=== PATIENT | male | born 1980 | race Caucasian/White ===

== ENCOUNTER 2024-03-27 09:31 | Observation (INO) ==
[2024-03-27] MEDS ORDERED: iohexoL-300 100 ML VIAL ONE ×2 (10:44→11:48)
[2024-03-27] MEDS: DEXAMETHASONE 10 MG/ML VIAL IVP STA (10:52)
[2024-03-27] MEDS: HYDROmorphone 1 MG/ML CARPUJECT IVP STA ×2 (10:52→13:21)
[2024-03-27] MEDS: KETOROLAC 30 MG/ML VIAL IVP STA (10:52)
[2024-03-27 11:03] LABS: BASOPHILS % (AUTO) 0.2 %; EOSINOPHILS % (AUTO) 1.5 %; LYMPHOCYTES % (AUTO) 4.8 %; MEAN CORPUSCULAR HEMOGLOBIN 30.5 pg (27.0-31.0); MEAN CORPUSCULAR HGB CONC 32.6 g/dL (32.0-36.0); MEAN CORPUSCULAR VOLUME 93.7 fL (80.0-94.0); MEAN PLATELET VOLUME 9.9 fL (7.4-11.4); MONOCYTES % (AUTO) 5.4 %; NEUTROPHILS % (AUTO) 87.4 %; PLT - PLATELET COUNT 266 10^3/uL (130-450); RED BLOOD COUNT 4.59 10^6/uL (4.70-6.10); RED CELL DISTRIBUTION WIDTH 12.9 % (12.0-15.0); WHITE BLOOD COUNT 25.6 x10^3/uL (4.8-10.8)
[2024-03-27 11:12] LABS: ABNORMAL LYMPHS % (MANUAL) 0 %
[2024-03-27 11:19] LABS: BAND NEUTROPHILS % (MANUAL) 20 %; DIFFERENTIAL COMMENT MANUAL DIFFERENTIAL; EOSINOPHILS # (MANUAL) 0.5 10^3/uL (0-0.7); LYMPHOCYTES # (MANUAL) 1.3 10^3/uL (1.5-3.5); LYMPHOCYTES % (MANUAL) 4 %; MONOCYTES # (MANUAL) 0.5 10^3/uL (0.0-1.0); NEUTROPHILS # (MANUAL) 23.3 10^3/uL (1.5-6.6); RBC MORPHOLOGY (MULTIPLE) 2+ ANISOCYTOSIS (NORMAL); REACTIVE LYMPHS % (MANUAL) 1 %
[2024-03-27] MEDS: CLINDAMYCIN 900 MG/50 ML 900 MG/50 ML BAG IV ONE (11:23)
[2024-03-27 11:31] LABS: ALBUMIN 4.3 g/dL (3.2-5.5); ALBUMIN/GLOBULIN RATIO 1.4 (1.0-2.2); BILIRUBIN,TOTAL 0.7 mg/dL (0.2-1.0); CALCIUM 9.8 mg/dL (8.5-10.3); CREATININE 0.9 mg/dL (0.6-1.3); POTASSIUM 3.7 mmol/L (3.5-4.5); TOTAL PROTEIN 7.4 g/dL (6.4-8.9)
[2024-03-27] MEDS: iohexoL-300 100 ML VIAL IVP ONE (12:28)
--- NOTE | 2024-03-27 12:48 | ED Physician Documentation ---
History of Present Illness Stated complaint Stated Complaint: JAW PX Chief complaint Chief Complaint: Heent Meds/Allgy Home Medications Ambulatory Orders Medication Instructions Recorded Confirmed amoxicillin 875 mg-potassium 1 tab PO BID #14 tabs 03/27/24 03/27/24 clavulanate 125 mg tablet gabapentin 100 mg capsule 100 mg PO TID 03/27/24 03/27/24 Allergies Allergies Allergy/AdvReac Type Severity Reaction Status Date / Time No Known Drug Allergies Allergy Verified 03/27/24 01:45 [facility] Medical History Medical History (Updated 03/27/24 @ 12:48 by Rosalind Scruggs MD) Anxiety Surgical History Surgical History (Updated 03/27/24 @ 01:56 by KENNEDY Jean) History of tooth extraction Social History Social History (Updated 03/27/24 @ 01:56 by KENNEDY Jean) Smoking Status: Current every day smoker Relationship: Physical Activity: Walking Level: Independent Do you feel safe in your home environment?: Yes Suffered physical, verbal, emotional, or financial abuse?: No History of Abuse: No ETOH Use: None Substance Use: denies use POLST Patient has POLST: No Results Vitals Vitals: Vital Signs - 24 hr 03/27/24 02:22 03/27/24 09:49 03/27/24 10:52 Temperature 37.2 C Temperature Source Oral Pulse Rate 123 H Respiratory Rate 15 Blood Pressure 177/97 H O2 Saturation 98 O2 Source Room air Room air Pain Intensity 4 8 10 03/27/24 10:52 03/27/24 11:40 03/27/24 11:41 Temperature Temperature Source Pulse Rate Respiratory Rate Blood Pressure O2 Saturation O2 Source Pain Intensity 10 3 3 Oxygen O2 Source Room air Labs Labs: Laboratory Tests 03/27/24 10:53 WBC 25.6 H RBC 4.59 L Hgb 14.0 Hct 43.0 MCV 93.7 MCH 30.5 MCHC 32.6 RDW 12.9 Plt Count 266 MPV 9.9 Neut # (Auto) Not Reportable Lymph # (Auto) Not Reportable [place] # (Auto) Not Reportable Eos # (Auto) Not Reportable Baso # (Auto) Not Reportable Absolute Nucleated RBC Not Reportable Total Counted 100 Band Neuts % (Manual) 20 H Reactive Lymphs % (Man) 1 Abnorm Lymph % (Manual) 0 Nucleated RBC % Not Reportable Neutrophils # (Manual) 23.3 H Lymphocytes # (Manual) 1.3 L Monocytes # (Manual) 0.5 Eosinophils # (Manual) 0.5 Basophils # (Manual) 0.0 Differential Comment MANUAL DIFFERENTIAL RBC Morph Micro Appear 2+ ANISOCYTOSIS Sodium 138 Potassium 3.7 Chloride 103 Carbon Dioxide 26 Anion Gap 9.0 BUN 12 Creatinine 0.9 Estimated GFR (MDRD) 92 Glucose 110 H Calcium 9.8 Total Bilirubin 0.7 AST 30 ALT 21 Alkaline Phosphatase 69 Total Protein 7.4 Albumin 4.3 Globulin 3.1 Albumin/Globulin Ratio 1.4 Lipase 24 Rads (name of study) CT neck with IV contrast: Relevant Findings:: Final report received and See rad report Interpretation: Right mandibular molar extraction was anterior cervical chain lymphadenopathy. Edema of local surrounding structures PD Medical Decision Making ED course Complexity details: reviewed old records, reviewed results, re-evaluated patient, considered differential, d/w patient, d/w family and d/w men's custom hair piece consultant ED course: The patient had significant swelling but was handling secretions well And had no stridor or any other evidence of airway compromise. He was given doses of Toradol, Decadron, and Dilaudid. He was also given initially dose of IV clindamycin. The patient did not have any tongue swelling or pharyngeal edema, but I was concerned about the degree of submental induration and edema and the fact that the patient felt it was worsening over the short. Since he had been seen here. He was worked up with labs which showed a white blood cell count of 25.6 otherwise unremarkable. He was worked up with a CT scan of the neck with IV contrast which showed localized edema around the extraction site, with additional extension of the edema into adjacent structures, as well as anterior cervical lymphadenopathy. No distinct abscess was noted. I did consult with our oral maxillofacial surgeon Dr. Caal and he did view the CT images. He stated that he felt the patient should be admitted to the hospital on Unasyn and Decadron. I did order a dose of Unasyn and discussed the plan with the patient. Because Dr. Caal will be out of town until 1999 this evening, he did request that the patient be admitted to the hospitalist service, so I have spoken with on-call hospitalist and she has agreed to admit the patient to her service. The patient is agreeable to the plan. Discharge Plan Discharge Patient Disposition: 66 [facility] DC/Xfer Condition: Serious Clinical Impression: Dental infection Prescriptions: No Action gabapentin 100 mg capsule 100 mg PO TID amoxicillin-pot clavulanate 875-125 mg tablet 1 tab PO BID Qty: 14 0RF Print Language: [place]
--- NOTE | 2024-03-27 12:56 | CT Report ---
PROCEDURE: CT Soft Tissue Neck W INDICATIONS: R jose dent extraction, swelling/pain R neck CONTRAST: OMNI 100ML TECHNIQUE: After the administration of intravenous contrast, 3.0 mm axial sections acquired from the sella to th e aortic arch. Additional oblique axial 3.0 mm sections acquired through the pharynx. 3 mm thick co david reformats were generated. For radiation dose reduction, the following was used: automated exp osure control, adjustment of mA and/or kV according to patient size. COMPARISON: None. FINDINGS: Image quality: Excellent. Lymph nodes: Prominent submandibular lymph node on the right, measuring 0.9 cm short axis. Additional prominent right-sided cervical chain lymph nodes are present. Vessels: Visualized vasculature appears patent. Neck spaces: The oropharynx, nasopharynx, and pharynx demonstrate no mucosal lesions. The vocal cor ds, false vocal cords, pyriform sinuses, epiglottis, vallecula, and tongue base all appear normal. E xtramucosal spaces appear unremarkable. Glands: There is enlargement and heterogeneous attenuation of the right submandibular gland.. The th yroid is normal in size and there are no incidental findings. Miscellaneous: Visualized brain and orbits appear normal. Lung apices appear clear. Superficial so ft tissues appear normal. Mild right-sided facial edema. Bones: No suspicious bony lesions. Visualized sinuses and mastoids appear unremarkable. Right jose ibular molar extraction. IMPRESSION: Right mandibular molar extraction. There is mild right-sided facial edema, prominent right cervical c americo lymph nodes, and enlargement and heterogeneous attenuation of the right-sided mandibular gland. Findings are all likely related to inflammation within the region, without discrete abscess. CLINICAL RECOMMENDATION STATEMENTS: In patients <35 years with an ITN detected on CT, MRI, or extrathyroidal ultrasound, the Committee re commends further evaluation with dedicated thyroid ultrasound if the nodule is "e1 cm and has no susp icious imaging features, and if the patient has normal life expectancy. In patients "e35 years with an ITN detected on CT, MRI, or extrathyroidal ultrasound, the Committee r ecommends further evaluation with dedicated thyroid ultrasound if the nodule is "e1.5 cm and has no s uspicious imaging features, and if the patient has normal life expectancy. (ACR, 2014) Reviewed by: Zhen Brown MD on 03/27/2024 12:55 PM PST Approved by: Zhen Brown MD on 03/27/2024 12:55 PM [facility] Station ID: [id number]
[2024-03-27] MEDS: AMPICILLIN/SULBACTAM 3 GM in SODIUM CHLORIDE 0.9% MINIBAG 100 ML IV STA (13:20)
--- NOTE | 2024-03-27 13:39 | HISTORY & PHYSICAL EXAMINATION ---
Chief Complaint Chief Complaint Chief Complaint: Pain History of Present Illness Admitted From Admitted From:: Home History Obtained From Records Reviewed: Yes History obtained from: Patient, patient's partner at bedside Exam Limitations: None History of Present Illness HPI Comment/Other: Patient is a 43-year-old male with a history of tobacco use, recent dental extraction who presents with worsening pain and swelling in the surgical area. Patient states that he had his surgery on Saturday. Immediately after, he was feeling okay. By Saturday and he had noticed increased swelling of the area, as well as pain. This progressed to the point where even swallowing his saliva was painful. He had some fevers and chills immediately postprocedure, but not since then. He ended up coming to the emergency room earlier this morning, and was discharged home with Augmentin, as well as some Motrin, and instructions to follow-up with his dental surgeon. However, he barely got any sleep due to the pain, and returned this morning. In the emergency room, patient was found to be tachycardic with heart rate in the 120s. He was afebrile, and normotensive. His lab work showed a leukocytosis of 25.6. His BMP was largely unremarkable. His CT of the soft tissue of the neck shows the right mandibular molar extraction, with some mild right-sided facial edema, as well as right-sided cervical chain lymph nodes and enlargement of the right submandibular gland. Findings likely related to inflammation within the area, no discrete abscesses noted. Patient's FS surgeon was spoken with, and he will be by later tonight to see the patient. He was admitted for IV antibiotics and pain control. Past medical history: Tobacco use, anxiety Medications: Gabapentin 100 mg 3 times daily Allergies: No known drug allergies Family history: Diabetes Surgical history: Root canals, dental extraction Social history: Smokes about half a pack a day, has been smoking about 5 cigarettes/day since the surgery. Denies any alcohol or recreational drug use. Works as a cook. Meds/Allgy Home Medications Ambulatory Orders Medication Instructions Recorded Confirmed amoxicillin 875 mg-potassium 1 tab PO BID #14 tabs 03/27/24 03/27/24 clavulanate 125 mg tablet gabapentin 100 mg capsule 100 mg PO TID 03/27/24 03/27/24 Allergies Allergies Allergy/AdvReac Type Severity Reaction Status Date / Time No Known Drug Allergies Allergy Verified 03/27/24 01:45 [facility] Medical History Medical History (Updated 03/27/24 @ 13:37 by Van Henry MD) Anxiety Surgical History Surgical History (Updated 03/27/24 @ 01:56 by KENNEDY Jean) History of tooth extraction Social History Social History (Updated 03/27/24 @ 01:56 by KENNEDY Jean) Smoking Status: Current every day smoker Relationship: Physical Activity: Walking Level: Independent Do you feel safe in your home environment?: Yes Suffered physical, verbal, emotional, or financial abuse?: No History of Abuse: No ETOH Use: None Substance Use: denies use POLST Patient has POLST: No Review of Systems Constitutional Reports: Fatigue and Poor appetite; Denies: Fever, Chills, Malaise, Weakness, Diaphoresis or Night sweats Eyes Denies: Pain, Irritation, Amaurosis or Blurry vision Ears, nose, mouth, and throat Reports: Mouth lesions, Dental pain, Throat pain and Neck pain; Denies: Ear pain, Ear discharge, Nasal discharge, Nasal congestion, Post nasal drip, Nasal obstruction, Vertigo, Swelling of lips/tongue or Bleeding gums Cardiovascular Denies: Irregular heart rate, chest pain, palpitations, edema, swelling of feet/ankles, Syncope, lightheadedness or shortness of breath with exertion Respiratory Denies: Shortness of breath, Cough, Sputum production or Wheezing Gastrointestinal Denies: Abdominal pain, Nausea, Vomiting, Poor appetite, Bile emesis, Saw blood emesis, Diarrhea or Constipation Genitourinary Denies: Painful urination, Flank pain, Incontinence, Urinary frequency, Urinary urgency or Nocturia Musculoskeletal Reports: Neck pain; Denies: Back pain, Extremity pain, Extremity swelling, Gout, Joint pain or Limited range of motion Integumentary/Breast Denies: Rash, Itching, Dryness, Redness, Skin pain or Skin tenderness Neurological Denies: Headache, General weakness, Focal weakness, Weakness in extremities or Vertigo Psychiatric Reports: Anxiety; Denies: Depression, Mood swings, Panic attacks or Change in sleep pattern Endocrine Reports: Fatigue; Denies: Excessive urination, Excessive thirst or Polyphagia Hematologic/Lymphatic Denies: Anemia, Easy bruising, Petechiae or Easy bleeding Allergic/Immunologic Denies: Wheezing Prior Level of Functionality: Fully independent of activities of daily living. Exam Constitutional normal general appearance, no apparent distress, average body habitus, no limitations and alert HENMT normocephalic, head/scalp atraumatic, hearing grossly normal bilaterally and external ears normal Dental extraction site with no obvious swelling or bleeding noted in right mandibular area. Swelling noted bilaterally, but worse on the right mandibular area. Cervical lymphadenopathy noted, worse on the right compared to left. No airway swelling, no tongue swelling noted. Eyes PERRL and EOMs intact bilaterally Neck/C-Spine trachea midline Chest inspection of chest normal Respiratory breath sounds equal bilaterally, normal respiratory effort, clear to auscultation bilaterally, no wheezes, no rales and no retractions Gastrointestinal abdomen normal to inspection, abdomen soft to palpation and nontender to palpation Extremities normal to inspection, normal to palpation, no tenderness and full ROM Neurology no movement abnormality noted and no focal motor deficit noted Psychiatry mental status grossly normal, oriented x3, thought process normal, cooperative and affect normal Skin skin color normal, no rash, no lesions, no ecchymosis noted, no wounds and no lacerations Sepsis Event Note (H) Evaluation Current Stage of Sepsis: Sepsis Possible source of Sepsis: positive Other (Dental extraction site) Sepsis Criteria Sepsis Criteria: Suspected or Documented, Recorded Heart Rate greater than 90 bpm and WBC count greater than 12,000 or less than 4000 Conclusion/Plan Problem List (1) Sepsis: Plan: Patient presents with tachycardia, leukocytosis of 26. Likely due to recent dental extraction, possible infection. CT does show right mandibular molar extraction site, as well as mild right- sided facial edema, as well as prominent right sided cervical chain lymph nodes, and enlargement of the right sided mandibular gland. Continue Unasyn 3 mg every 6 hours, Decadron 10mg every 8 hours. OMFS consulted. Continue Tylenol, Motrin, morphine, Toradol as needed. Qualifiers: Sepsis type: sepsis due to unspecified organism Sepsis acute organ dysfunction status: without acute organ dysfunction Qualified Code(s): A41.9 - Sepsis, unspecified organism (2) Swelling of right side of face: Plan: See above. (3) Tobacco use: Plan: Will see if patient would like nicotine patch. Current everyday smoker. (4) Anxiety: Plan: Continue gabapentin 100 mg 3 times daily, which patient states he takes for anxiety. Lab Results Lab results reviewed: Yes 03/27/24 10:53 03/27/24 10:53 Diagnostic Imaging Results Diagnostic Imaging Results: positive Final report reviewed Core Measures Anticipated LOS I expect patient to be DC'd or transferred within 96 hours.: Yes Issues Hospital Issues and Management Plan: None expected. DVT/VTE - Prophylaxis VTE/DVT Device ordered at admit?: Yes VTE/DVT Prophylaxis med ordered at admit?: Yes Stroke - Rehab Assessment Rehab services assessment to be ordered?: No Not Ordered - Medical Reason: Not indicated AMI - Statin at Admit Aspirin Prescribed on Admit: No Not Ordered - Medical Reason: Not indicated
[2024-03-27] MEDS ORDERED: ACETAMINOPHEN 325 MG TABLET PO PRN (14:00)
[2024-03-27] MEDS ORDERED: SODIUM CHLORIDE FLUSH 0.9% 10 ML SYRINGE IVP PRN (14:00)
[2024-03-27] MEDS ORDERED: MORPHINE 2 MG/ML CARPUJECT IVP PRN (14:00)
[2024-03-27] MEDS: SODIUM CHLORIDE 0.9% 1,000 ML IV SCH (14:54)
[2024-03-27] MEDS: GABAPENTIN 100 MG CAPSULE PO SCH (14:54)
[2024-03-27] MEDS: IBUPROFEN 400 MG TABLET PO PRN (15:49)
[2024-03-27] MEDS: SODIUM CHLORIDE FLUSH 0.9% 10 ML SYRINGE IVP SCH (17:18)
[2024-03-27] MEDS: AMPICILLIN/SULBACTAM 3 GM in SODIUM CHLORIDE 0.9% MINIBAG 100 ML IV SCH (17:19)
[2024-03-27] MEDS: KETOROLAC 15 MG/ML VIAL IVP PRN (17:19)
[2024-03-27] MEDS: HYDROcod/ACETAM 5/325 MG TABLET PO PRN (17:31)
[2024-03-27] MEDS: NICOTINE 14 MG PATCH TOP STA (17:31)
[2024-03-27] MEDS: DEXAMETHASONE 10 MG/ML VIAL IVP SCH (18:47)
--- NOTE | 2024-03-27 22:54 | CONSULTATION NOTE ---
Referring Provider Name of Referring Provider:: Van Henry Consult Date: 03/27/24 Chief Complaint Chief Complaint Chief Complaint: Neck swelling History of Present Illness Admitted From Admitted From:: ER History Obtained From History obtained from: Patient and clinical documents History of Present Illness HPI Comment/Other: This is a 43-year-old male who presented to the emergency room with abrupt increase in right-sided facial and neck swelling. The swelling got worse and it became difficult and painful for him to swallow so he thought that airway loss was a possibility and so he presented to the emergency room. He recently moved [facility]. He has been taking care of his ailing father and has been neglecting his own health, including problems with a tooth of the right mandible that he was advised to remove 6 months ago. Recently became painful and as he puts it, unseated. He saw Dr. Sav Bocanegra on Saturday who remove the tooth easily. He reports that Dr. Bocanegra did not have to do any drilling to get the tooth out. He reports that it was unusually painful when he did the injection though. At that point he did not have any facial swelling. Then on he started having facial swelling. He presented to the emergency room this morning 1 AM. After going home his problems continue to worsen and so he came back to the emergency room today. A CT scan was taken. It demonstrated diffuse fat stranding and cellulitis of the right cervical and facial region adjacent to the extraction site. He was found to have a white count of 26. [facility] was consulted for evaluation and management of his right facial swelling. At the time of this consult he is already been admitted to the hospital for almost 12 hours. He has been on Unasyn's 3 g every 6 hours. He is also been on dexamethasone. He has been eating and drinking fine. He has not had a fever. Most importantly, he reports that his symptoms have improved dramatically. He reports that his swelling is decreased significantly. He denies any difficulty breathing or swallowing. He reports that pain when swallowing has almost gone away completely. He has not had any drainage in his mouth. He denies any trismus. He denies fever. He endorses pain of the right neck and pain of the extraction site as well as right facial and neck swelling. [facility] Medical History Medical History (Updated 03/27/24 @ 13:37 by Van Henry MD) Anxiety Surgical History Surgical History (Updated 03/27/24 @ 01:56 by KENNEDY Jean) History of tooth extraction Social History Social History (Updated 03/27/24 @ 01:56 by KENNEDY Jean) Smoking Status: Current every day smoker How many cigarettes a day do you smoke? (20 cigarettes=1 Pk): 10 Second hand tobacco smoke exposure: Yes Do you vape?: No Patient requests smoking cessation consult: No Initiate information on smoking cessation: No Relationship: Physical Activity: Walking Level: Independent Do you feel safe in your home environment?: Yes Suffered physical, verbal, emotional, or financial abuse?: No History of Abuse: No ETOH Use: None Substance Use: cannabis (any form) POLST Patient has POLST: No Meds/Allgy Home Medications Ambulatory Orders Medication Instructions Recorded Confirmed amoxicillin 875 mg-potassium 1 tab PO BID #14 tabs 03/27/24 03/27/24 clavulanate 125 mg tablet gabapentin 100 mg capsule 100 mg PO TID 03/27/24 03/27/24 Allergies Allergies Allergy/AdvReac Type Severity Reaction Status Date / Time No Known Drug Allergies Allergy Verified 03/27/24 01:45 Results Lab Results 03/27/24 10:53 03/27/24 10:53 Other Lab Results: Lab Results x24hrs 03/27/24 Range/Units 10:53 WBC 25.6 H (4.8-10.8) x10^3/uL RBC 4.59 L (4.70-6.10) 10^6/uL Hgb 14.0 (14.0-18.0) g/dL Hct 43.0 (42.0-52.0) % MCV 93.7 (80.0-94.0) fL MCH 30.5 (27.0-31.0) pg MCHC 32.6 (32.0-36.0) g/dL RDW 12.9 (12.0-15.0) % Plt Count 266 (130-450) 10^3/uL MPV 9.9 (7.4-11.4) fL Neut # (Auto) Not Reportable Lymph # (Auto) Not Reportable [place] # (Auto) Not Reportable Eos # (Auto) Not Reportable Baso # (Auto) Not Reportable Absolute Nucleated RBC Not Reportable Total Counted 100 Band Neuts % (Manual) 20 H (0 - 10) % Reactive Lymphs % (Man) 1 % Abnorm Lymph % (Manual) 0 % Nucleated RBC % Not Reportable Neutrophils # (Manual) 23.3 H (1.5-6.6) 10^3/uL Lymphocytes # (Manual) 1.3 L (1.5-3.5) 10^3/uL Monocytes # (Manual) 0.5 (0.0-1.0) 10^3/uL Eosinophils # (Manual) 0.5 (0-0.7) 10^3/uL Basophils # (Manual) 0.0 (0-0.1) 10^3/uL Differential Comment MANUAL DIFFERENTIAL RBC Morph Micro Appear 2+ ANISOCYTOSIS (NORMAL) Sodium 138 (135-145) mmol/L Potassium 3.7 (3.5-4.5) mmol/L Chloride 103 (101-111) mmol/L Carbon Dioxide 26 (21-32) mmol/L Anion Gap 9.0 (6-13) BUN 12 (6-20) mg/dL Creatinine 0.9 (0.6-1.3) mg/dL Estimated GFR (MDRD) 92 (>89) Glucose 110 H (74-104) mg/dL Calcium 9.8 (8.5-10.3) mg/dL Total Bilirubin 0.7 (0.2-1.0) mg/dL AST 30 (10-42) IU/L ALT 21 (10-60) IU/L Alkaline Phosphatase 69 (42-121) IU/L Total Protein 7.4 (6.4-8.9) g/dL Albumin 4.3 (3.2-5.5) g/dL Globulin 3.1 (2.1-4.2) g/dL Albumin/Globulin Ratio 1.4 (1.0-2.2) Lipase 24 (11-82) U/L Diagnostic Imaging Results Diagnostic Imaging Results Comments: Radiographically there is a mild hypodense area adjacent to the lingual aspect of the extraction site. It is not a clear fluid collection. There is also fat stranding of the skin over the right face and neck. There is also edema of the soft tissue medial to the right mandible with mild mass effect on the airway causing effacement of the right airway and mild shift Conclusion and Plan Diagnosis Diagnosis: Right submandibular space cellulitis Plan Plan: We anticipate nonoperative management of this patient's cellulitis. Okay for discharge to home tomorrow as long as his clinical course continues to improve. Recommend Augmentin 875 mg twice daily x 10 days Follow-up in my clinic on Saturday. He can call [phone] for an appointment Consultation Note Consultation Note: 43-year-old male 5 days status post extraction of tooth #31 with postoperative cellulitis of the right submandibular space and buccal space. Improving significantly during this brief hospitalization His hospitalization was advised because of 3 important factors: 1. The abrupt onset of his cellulitis 2. The proximity of the cellulitis to the airway and his symptom of painful swallowing 3. The high leukocytosis He will likely be ready for discharge tomorrow. The reasoning for this is, among other things, the followin. His rapid improvement now that he is on IV antibiotics. 2. the ability to manage his infection with similar antibiotic coverage with Augmentin 875 mg twice daily 3. The resolution of his symptom of painful and difficult swallowing. 4. The lack of a distinct fluid collection on his CT scan Review of Systems A 14 point review of systems was completed and found to be negative except as noted above in HPI Exam Constitutional normal general appearance HENMT Moderate indurated swelling of the right submandibular area. The inferior border of the mandible is not palpable in the area of the right posterior mandibular body. There is little to no erythema of the overlying skin. Mouth opening is within normal limits. There is no tenderness or swelling of the floor the mouth. The tongue is not elevated. The uvula is midline. There is no lateral pharyngeal swelling. There is no purulent drainage intraorally. The extraction site appears normal. There is swelling and pain at the inferior extreme of the buccal vestibule adjacent to site #31. Eyes PERRL Neck/C-Spine Swelling of the right cervical region as detailed above. The swelling does not extend below the thyroid cartilage Lymph Palpable lymphadenopathy of the right cervical region Chest inspection of chest normal Respiratory normal respiratory effort and no use of accessory muscles Cardiovascular normal heart rate noted Gastrointestinal abdomen soft to palpation Extremities full ROM Neurology pick remover II-XII intact (With exception of mild hypoesthesia in the right V3 distribution. ) Skin skin color normal
[2024-03-28 05:37] LABS: HGB - HEMOGLOBIN 13.9 g/dL (14.0-18.0); MEAN CORPUSCULAR HEMOGLOBIN 30.9 pg (27.0-31.0); MEAN CORPUSCULAR HGB CONC 33.1 g/dL (32.0-36.0); MEAN CORPUSCULAR VOLUME 93.3 fL (80.0-94.0); MEAN PLATELET VOLUME 9.9 fL (7.4-11.4); RED BLOOD COUNT 4.5 10^6/uL (4.70-6.10); RED CELL DISTRIBUTION WIDTH 12.7 % (12.0-15.0); WHITE BLOOD COUNT 22.5 x10^3/uL (4.8-10.8)
[2024-03-28 05:47] LABS: MAGNESIUM 2.1 mg/dL (1.7-2.3)
[2024-03-28 05:53] LABS: CALCIUM 9.5 mg/dL (8.5-10.3); CREATININE 0.7 mg/dL (0.6-1.3)
[2024-03-28] MEDS ORDERED: NICOTINE 14 MG PATCH TOP SCH (09:00)
[2024-03-28] MEDS: ENOXAPARIN 40 MG/0.4 ML SYRINGE SUBQ SCH (09:16)
--- NOTE | 2024-03-28 09:28 | Discharge Summary ---
"Discharge Summary Admit Date: 03/27/24 Discharge Date: 03/28/24 Discharging Provider: Dr. Van Henry Primary Care Provider: None at this time, PCP list provided Code Status: Attempt Resuscitation Discharge Facility Name: Home, self care DIAGNOSES Admission Diagnoses: Sepsis Swelling of right side of face Tobacco use Anxiety Discharge Diagnoses with Status of Each Condition: Sepsislikely due to recent tooth extraction, inflammation in the area. Leukocytosis is downtrending. Heart rate within normal limits. Continue 9 more days of oral Augmentin. Received 1 day of IV Unasyn, as well as Decadron here. Continue pain control. Patient has Motrin and Tylenol at home. Will send a few days of [place] if needed for severe pain. Swelling of right side of faceCT did not show any discrete abscess. Follow-up appointment with FS surgeon to be done on Saturday. Phone number provided to make appointment. Tobacco useencouraged tobacco cessation. Annual anxietycontinue gabapentin as prescribed. HPI History of Present Illness: Patient is a 43-year-old male with a history of tobacco use, recent dental extraction who presents with worsening pain and swelling in the surgical area. Patient states that he had his surgery on Saturday. Immediately after, he was feeling okay. By Saturday and he had noticed increased swelling of the area, as well as pain. This progressed to the point where even swallowing his saliva was painful. He had some fevers and chills immediately postprocedure, but not since then. He ended up coming to the emergency room earlier this morning, and was discharged home with Augmentin, as well as some Motrin, and instructions to follow-up with his dental surgeon. However, he barely got any sleep due to the pain, and returned this morning. In the emergency room, patient was found to be tachycardic with heart rate in the 120s. He was afebrile, and normotensive. His lab work showed a leukocytosis of 25.6. His BMP was largely unremarkable. His CT of the soft tissue of the neck shows the right mandibular molar extraction, with some mild right-sided facial edema, as well as right-sided cervical chain lymph nodes and enlargement of the right submandibular gland. Findings likely related to inflammation within the area, no discrete abscesses noted. Patient's FS surgeon was spoken with, and he will be by later tonight to see the patient. He was admitted for IV antibiotics and pain control. Past medical history: Tobacco use, anxiety Medications: Gabapentin 100 mg 3 times daily Allergies: No known drug allergies Family history: Diabetes Surgical history: Root canals, dental extraction Social history: Smokes about half a pack a day, has been smoking about 5 cigarettes/day since the surgery. Denies any alcohol or recreational drug use. Works as a cook. CONSULTS | PROCEDURES Consultations: [facility] Procedures: CT soft tissue neck HOSPITAL COURSE Hospital Course: Patient is a 43-year-old male with a history of tobacco use, anxiety who presented with right sided facial swelling. On Saturday, he had a molar extraction done. Since then, he has had worsening pain and swelling of the area. He denies any fevers or chills. CT soft tissue was done of the neck, and it did not show any discrete abscess, but I did show some swelling, as well as some reactive lymphadenopathy. He was started on IV Unasyn, as well as IV Decadron. [facility]FS was consulted. They recommended 9 more days of oral Augmentin, as well as close follow-up in the outpatient setting. They will make an appointment for him on Saturday. Overall, patient is pain is well-controlled. He was discharged home on the oral antibiotics, as well as some [place] as needed for severe pain. He was advised to follow-up with a primary care physician, as well as all of his surgeon on Saturday. He demonstrated understanding, and as such was discharged home ALLERGIES Allergies Allergy/AdvReac Type Severity Reaction Status Date / Time No Known Drug Allergies Allergy Verified 03/27/24 01:45 MEDICATIONS Ambulatory Orders Medication Instructions Recorded Confirmed gabapentin 100 mg capsule 100 mg PO TID 03/27/24 03/27/24 amoxicillin 875 mg-potassium 1 tab PO BID 9 days #18 tabs 03/28/24 clavulanate 125 mg tablet hydrocodone 5 mg-acetaminophen 300 1 tab PO Q8HR PRN pain #12 tabs 03/28/24 mg tablet PHYSICAL EXAM AT DISCHARGE General Appearance: positive No acute distress and Alert; negative Anxious or Lethargic Eyes Bilateral: positive Normal inspection, PERRL and EOMI ENT: positive ENT inspection nml, Pharynx nml and Other (Swelling improved of mandibular region, still some erythema and swelling noted of right lower molar region, no purulence or drainage noted); negative Purulent nasal drainage Neck: positive Nml inspection; negative Thyroid nml, Trachea midline or Stiff neck Respiratory: positive Chest non-tender and No respiratory distress; negative Wheezes, Rales or Rhonchi Cardiovascular: positive Regular rate & rhythm, No murmur and No gallop; negative Tachycardia, Bradycardia, Systolic murmur or Diastolic murmur Peripheral Pulses: positive 2+ Abdomen: positive Non-tender; negative Tenderness, Guarding, Rebound, Hepatomegaly, Splenomegaly or Mass Back: positive Nml inspection; negative CVA tenderness (R) or CVA tenderness (L) Skin: positive Color nml, No rash, Warm and Dry Extremities: positive Non-tender, Full ROM and No pedal edema Neurologic/Psychiatric: positive Oriented x3 and Mood/affect nml LABS 03/28/24 05:15 03/28/24 05:15 DIAGNOSTIC IMAGING Diagnostic Imaging Results: Final report reviewed SEPSIS Current Stage of Sepsis: Resolved Possible source of Sepsis: Other (Dental extraction site) Sepsis Criteria: Suspected or Documented, Recorded Heart Rate greater than 90 bpm and WBC count greater than 12,000 or less than 4000 QUALITY (Female Hip Fx Only) Was patient sent home on osteoporosis medication?: No FOLLOW UP Follow Up: Follow-up with [facility] doctor, Dr. Hernández, on Saturday. Establish care and follow up with PCP. TIME SPENT Time Spent in Discharge (Minutes): 40 Discharge Plan Discharge Patient Disposition: Home, Self Care Condition: Stable Prescriptions: New hydrocodone-acetaminophen 5-300 mg tablet 1 tab PO Q8HR PRN (Reason: pain) Qty: 12 0RF Continued gabapentin 100 mg capsule 100 mg PO TID amoxicillin-pot clavulanate 875-125 mg tablet 1 tab PO BID 9 Days Qty: 18 0RF Diet: Regular Interventions: Belongings Inventory Last Done: 03/27/24 16:06 Discharge Last Done: 03/28/24 11:00 Discharge Checklist - Nursing Last Done: 03/28/24 11:00 Health Concerns: You came in because you had some swelling of your face, as well as pain at the site of your dental extraction site. We started you on some IV antibiotics, as well as steroids, and some IV pain relief. You are feeling much better today. I will be sending you home with Augmentin for another 9 days. I will also be sending some pain pills to the pharmacy if needed. Please continue to take the Motrin and Tylenol that you already have at home first, [id number], as needed. Dr. Hernández would like you to see him in his clinic on u can call [phone] for an appointment. We are glad you are feeling better, thank you for allowing us to take care of you. Print Language: Georgian Patient Instructions: ED Abscess Tooth Stand Alone Forms: PCP List Follow-up Care: MIGUEL HERNÁNDEZ [Physician No Access] -"
[2024-03-28 10:10] VITALS: O2SAT 97
[2024-03-28] MEDS: NICOTINE 14 MG PATCH TOP SCH (11:03)
[2024-03-28 11:12] VITALS: BP 143/98; TEMP 98.1
--- NOTE | 2024-03-28 11:49 | PHARMACY PROGRESS NOTE ---
Best Possible Medication History Admit Date and Time: 03/27/24 150073 Home Medications Medication Instructions Recorded Confirmed Type gabapentin 100 mg capsule 100 mg PO TID 03/27/24 03/27/24 History amoxicillin 875 mg-potassium 1 tab PO BID 9 days #18 tabs 03/28/24 Rx clavulanate 125 mg tablet hydrocodone 5 mg-acetaminophen 300 1 tab PO Q8HR PRN pain #12 tabs 03/28/24 Rx mg tablet Processed by: Nursing Medications reviewed in ED?: Yes Medication History completed: Yes Patient Interview: Completed [facility] Statement: As the person ultimately responsible for medication therapy, providers are able to order a medication from an existing home medication list in [facility] via the "Reconcile Routine" prior to Confirmation of that medication by clinical support specialist. Such practice is discouraged except when the physician, in their clinical judgment, deems that a medical need exists for a medication without regard to previous use.
== END 2024-03-28 11:20 | disposition home or self-care (01) ==
LOC: ED 09:31 → MS2 09:31
PROVIDERS: ADMIT Internal Medicine; ATTEND Internal Medicine
DX: K08.409 Partial loss of teeth, unspecified cause, unspecified class; R59.0 Localized enlarged lymph nodes; F17.210 Nicotine dependence, cigarettes, uncomplicated; K12.2 Cellulitis and abscess of mouth; A41.9 Sepsis, unspecified organism; R13.10 Dysphagia, unspecified; F41.9 Anxiety disorder, unspecified